=== PATIENT | female | born 1995 | race African-American/Black ===

== ENCOUNTER 2022-09-08 11:20 | Emergency (ER) | payer SELFPAY ==
[~2022-09-08] VITALS: Ht 175.3 cm; Wt 84.0 kg
[2022-09-08 11:24] VITALS: BP 135/80
[2022-09-08] MEDS ORDERED: TETRACAINE 0.5% OPHTH DROPS 4ML LEFTEYE ONE (12:30)
[2022-09-08] MEDS ORDERED: FLUORESCEIN SODIUM 1MG/STRIP LEFTEYE ONE (12:30)
[2022-09-08] MEDS ORDERED: LEVO5DRO20 LEFTEYE (13:27)
== END 2022-09-08 13:59 | disposition home or self-care (01) ==
LOC: ER 11:20
DX: H57.12 Ocular pain, left eye (principal); H11.9 Unspecified disorder of conjunctiva
CPT/HCPCS: 99283

== ENCOUNTER 2022-12-03 13:29 | Emergency (ER) | payer BC ==
[~2022-12-03] VITALS: Ht 177.8 cm; Wt 79.0 kg
[~2022-12-03 13:29] MED LIST: LEVO5DRO20 LEFTEYE
[2022-12-03 13:36] VITALS: BP 133/46
[2022-12-03] MEDS ORDERED: IBUPROFEN 600MG TABLET PO NR (16:28)
[2022-12-03] MEDS ORDERED: NAPR-681 PO (17:52)
[2022-12-03] MEDS ORDERED: CIPR5DRO EACHEYE (17:52)
[2022-12-03] MEDS ORDERED: D-ME473S50 PO (17:52)
== END 2022-12-03 18:32 | disposition home or self-care (01) ==
LOC: ER 13:29
DX: H10.9 Unspecified conjunctivitis (principal); J06.9 Acute upper respiratory infection, unspecified; Z20.822 Contact with and (suspected) exposure to COVID-19
CPT/HCPCS: 81025; 87070; 87426; 87430; 99283; C9803

== ENCOUNTER 2024-04-10 20:30 | Emergency (ER) | payer BC ==
[~2024-04-10] VITALS: Ht 175.3 cm; Wt 94.0 kg
[~2024-04-10 20:30] MED LIST changes: +CIPR5DRO EACHEYE; +D-ME473S50 PO; +NAPR-681 PO
[2024-04-10 20:34] VITALS: O2SAT 100
[2024-04-10 21:13] VITALS: BP 124/79; PULSE 86; RESP 18; TEMP 98.1; O2SAT 100
[2024-04-11] MEDS: ACETAMINOPHEN 325MG TABLET PO ONE (01:30)
[2024-04-11] MEDS: IBUPROFEN 800MG TABLET PO ONE (01:30)
[2024-04-11] MEDS ORDERED: IBUP-1525 MT (01:33)
[2024-04-11] MEDS ORDERED: TOPUD MT (01:33)
== END 2024-04-11 03:20 | disposition home or self-care (01) ==
LOC: ER 20:30
DX: M79.672 Pain in left foot (principal); Z79.899 Other long term (current) drug therapy
CPT/HCPCS: 73660; 29515; 99283; Z7610 ×4